=== PATIENT | male | born 1970 | race Caucasian/White ===

== ENCOUNTER 2024-06-30 14:05 | Emergency (ER) | payer OTHER ==
[~2024-06-30] VITALS: Ht 180.3 cm; Wt 117.3 kg
[2024-06-30] MEDS ORDERED: GENVOYA TABLET1 EACH PO (14:20)
[2024-06-30] MEDS ORDERED: MIRTAZAPINE45 MG PO (14:20)
[2024-06-30] MEDS ORDERED: LEVOTHYROXINE50 MC1 PO (14:21)
[2024-06-30] MEDS ORDERED: ACTOS15 MG PO (14:21)
[2024-06-30 14:27] LABS: BASOPHILS 0.8 % (0-2); EOSINOPHILS 1.3 % (0-6); HEMOGLOBIN 14.6 g/dL (12.0-18.0); MCH 32.8 (27-36); MCHC 34.8 g/dl (30-36); MCV 94.2 fl (81-99); MONOCYTES 10.1 % (0-12); NEUTROPHILS 35.8 % (39-80); PLATELET COUNT 209 K/uL (140-440); RBC 4.46 M/ul (4.3-5.7); RDW 12.6 (10.5-15.0)
[2024-06-30] MEDS ORDERED: ondansetron HCL 4 MG/2 ML VIAL IV ONE (14:30)
[2024-06-30 14:45] LABS: ALBUMIN/GLOBULIN RATIO 1.11 (1.1-2.4); ANION GAP 12.8 (7-21); BILIRUBIN, TOTAL 0.5 ng/dL (0.2-1.0); BUN/CREATININE RATIO 7.75 (6.0-28.6); CALCIUM 9.1 mg/dL (8.5-10.1); CREATININE, SERUM 1.29 mg/dL (0.70-1.30); POTASSIUM 3.8 mmol/L (3.5-5.1); PROTEIN, TOTAL 7.6 g/dL (6.4-8.2)
[2024-06-30 14:49] LABS: BILIRUBIN, URINE NEGATIVE (negative); BLOOD/HGB, URINE NEGATIVE (Negative); KETONE, URINE NEGATIVE (Negative); LEUK ESTERASE, URINE NEGATIVE (negative); NITRITE, URINE NEGATIVE (negative); PH, URINE 7.5 (5-7)
[2024-06-30 15:45] VITALS: BP 145/88
== END 2024-06-30 15:45 | disposition other institution, planned readmission (95) ==
LOC: ED 14:05
PROVIDERS: Emergency Medicine
DX: K42.9 Umbilical hernia without obstruction or gangrene (principal); E66.9 Obesity, unspecified; E03.9 Hypothyroidism, unspecified; K76.0 Fatty (change of) liver, not elsewhere classified; K80.20 Calculus of gallbladder without cholecystitis without obstruction; Z88.2 Allergy status to sulfonamides; Z88.8 Allergy status to other drugs, medicaments and biological substances; Z79.899 Other long term (current) drug therapy; Z79.890 Hormone replacement therapy
CPT/HCPCS: 36415; 74176; 80053; 81003; 83690; 85025; 96374; 99284-25; J2405

== ENCOUNTER 2025-06-26 07:59 | Day surgery (SDC) | payer OTHER ==
[~2025-06-26] VITALS: Ht 180.3 cm; Wt 113.6 kg
[~2025-06-26 07:59] MED LIST: ACTOS15 MG PO; CEFAZOLIN SODIUM 2 GM/20 ML SYR IV SCH; GENVOYA TABLET1 EACH PO; HEParin SOD (PORCINE) 5,000 UNIT/ML SDV SUB-Q SCH; IBLOOD GLUCOSE TEST STRIP 1 EA TEST VI PRN; LACTATED RINGER'S 1,000 ML IV SCH; LEVOTHYROXINE50 MC1 PO; LIDOCAINE HCL 1% 5 ML SDV INJ ONE; MIRTAZAPINE45 MG PO; MULTI-VITAMIN1 EACH PO
[2025-06-26] MEDS ORDERED: LEVOTHYROXINE88 MC1 PO (08:26)
[2025-06-26] MEDS ORDERED: VITAMIN D325 MC2 PO (08:27)
[2025-06-26 08:29] VITALS: BP 108/79
[2025-06-26] MEDS ORDERED: fentaNYL citrate 100 MCG/2 ML VIAL ONE (09:07)
[2025-06-26] MEDS ORDERED: ACETAMINOPHEN 1,000 MG/100 ML VIAL ONE (09:07)
[2025-06-26] MEDS ORDERED: KETOROLAC TROMETHAMINE 30 MG/ML VIAL ONE (09:07)
[2025-06-26] MEDS ORDERED: DEXAMETHASONE SOD PHOS 4 MG/ML VIAL ONE (09:07)
[2025-06-26] MEDS ORDERED: LIDOCAINE HCL 2% 5 ML SDV ONE (09:07)
[2025-06-26] MEDS ORDERED: fentaNYL citrate 50 MCG/ML SDV IV PRN (09:45)
[2025-06-26] MEDS ORDERED: NALOXONE HCL 0.4 MG SYR IV PRN ×2 (09:45→10:45)
[2025-06-26] MEDS ORDERED: IBLOOD GLUCOSE TEST STRIP 1 EA TEST VI PRN (09:45)
[2025-06-26] MEDS ORDERED: HYDROmorphone HCL 1 MG/ML SYR IV PRN (09:45)
--- NOTE | 2025-06-26 10:34 | NUR ---
06/26/25 1034 Candida Carey LE 1025: PT ARRIVES TO PACU ASLEEP ON ROOM AIR. REPORT RECEIVED FROM [employer] AND [employer] [address] MAN. LE 1033: PT DROPS DOWN TO 88% ON ROOM AIR. PUT ON 2L VIA NC. HE WAKES UP TO STIMULI AND REPORTS NO PAIN OR NAUSEA.
[2025-06-26] MEDS ORDERED: IBUPROFEN600 MG PO (10:41)
[2025-06-26] MEDS ORDERED: HYDROCODON-ACE1 EA10 PO (10:42)
[2025-06-26] MEDS ORDERED: ACETAMINOPHEN500 MG PO (10:42)
[2025-06-26] MEDS ORDERED: HYDROCODONE/ACETA 5/325 TAB PO PRN (10:45)
[2025-06-26] MEDS ORDERED: ACETAMINOPHEN 500 MG TAB PO PRN (10:45)
[2025-06-26] MEDS ORDERED: LACTATED RINGER'S 1,000 ML IV SCH (10:45)
[2025-06-26] MEDS ORDERED: IBUPROFEN 600 MG TAB PO PRN (10:45)
[2025-06-26 11:01] VITALS: BP 133/75
--- NOTE | 2025-06-26 11:06 | NUR ---
PATIENT BACK IN DAY SURGERY ROOM FROM PACU. DENIES PAIN. VS CHECKED. TOLERATING WATER. GIVEN PUDDING TO EAT. IV SITE WNL. UMBILICAL DRESSING CDI. CALL LIGHT WITHIN REACH. GUARDS AT BEDSIDE.
--- NOTE | 2025-06-26 11:33 | OR ---
[facility] [address], [place] [address] Signed DATE OF OPERATION: 06/26/2025 SURGEON: Jerome Diaz MD PREOPERATIVE DIAGNOSIS: Incarcerated umbilical hernia. POSTOPERATIVE DIAGNOSIS: Incarcerated umbilical hernia with omentum, fascial defect 3.1 cm. PROCEDURES: 1. Repair of incarcerated umbilical hernia, fascial defect 3.1 cm. 2. Implantation of Prolene mesh underlay technique with fascial reapproximation. ANESTHESIA: General LMA, Deepak Shields, LAB RN and local 10 mL of 0.25% Marcaine with epinephrine. INDICATION: This 55-year-old white man is a prisoner at [facility] and has numerous underlying chronic medical issues include history of hepatitis C, history of tuberculosis and HIV disease. He has had an incarcerated increasingly symptomatic umbilical hernia. He is referred by Casi Dao for consideration of repair. The hernia appears to be nonreducible. He is admitted at this time to undergo repair of the hernia. He understands the risk of bleeding, infection, and recurrence. FINDINGS: Indeed herniated properitoneal fat was noted. This was completely reduced. A fascial space in the properitoneal area approximately 3 cm circumferentially was developed and allowed for implantation of Prolene mesh in the properitoneal space. Transverse reapproximation of the fascia was undertaken as well. He tolerated the procedure well. DESCRIPTION OF PROCEDURE: The patient was brought to the operating room, given a general LMA type anesthetic. Preoperative antibiotic Ancef was given and sequential compression device stockings were used. He is almonte, somewhat obese. Abdomen was clipped and prepared with a chlorhexidine solution and draped sterilely. A nonreducible properitoneal fat was noted. A curvilinear incision was made to the left of the umbilicus and dissection was carried through the dermis sharply. Using blunt and electrocautery dissection, the underlying hernia sac and its contents were freed from the overlying dermis of the umbilical skin itself. Circumferential freeing of the herniated contents from the Electronically Signed By: JEROME DIAZ MD 06/26/25 1133 PATIENT NAME: JEROME SCHULTZ OPERATIVE REPORT DATE OF : 70 REPORT #: [id number] PHYSICIAN: JEROME DIAZ MD PCP: [facility] REPORT IS CONFIDENTIAL AND NOT TO BE RELEASED WITHOUT AUTHORIZATION [facility] [address], [place] [address] Signed fascial edge was undertaken and with various manipulations, the herniated properitoneal fat was reduced from the properitoneal space. Using blunt dissection, a space was created between the properitoneal layer and the overlying fascia approximately 3 cm circumferentially. A segment of mesh was cut to a circular configuration and implanted in the properitoneal space and secured with interrupted 0 Prolene sutures. Midline fascia was reapproximated transversely. Prior to closure, the fascial defect was measured at 3.1 cm. A 10 mL of 0.25% Marcaine with epinephrine was injected locally. The layers of the abdominal wall were closed with interrupted 2-0 Vicryl and skin closed with interrupted 3-0 Vicryl in deep dermal layer. Steri-Strips were applied as was an Acticoat dressing. The patient was ultimately extubated and transferred to the recovery room in good condition having suffered no complication. Sponge, needle, and instrument counts were reported as correct x3. MD JOHNATHAN Gomez/MODL /[id number] cc: RM Gonzáles [facility] RIAN Webb Copies: CASI DAO ~ Electronically Signed By: JEROME DIAZ MD 06/26/25 1133 PATIENT NAME: MIGDALIAVANDANAJEROME OPERATIVE REPORT DATE OF : 70 REPORT #: [id number] PHYSICIAN: JEROME DIAZ MD PCP: [facility] REPORT IS CONFIDENTIAL AND NOT TO BE RELEASED WITHOUT AUTHORIZATION
[2025-06-26 11:55] VITALS: BP 128/85
--- NOTE | 2025-06-26 12:22 | NUR ---
1120: SPOT CHECK ON ROOM AIR 96% AFTER TURNING OFF O2. 1135: PATIENT ASSISTED OOB AND TO BATHROOM WITH HELP FROM GUARDS. GAIT STEADY. VOID PER URINAL APPROXIMATELY 300 ML. GAIT STEADY BACK TO ROOM. PATIENT STATES PAIN INCREASED AND WOULD LIKE PAIN MEDICATION. MEDICATED FOR PAIN WITH 1 TAB OF HYDROCODONE/ACETAMINOPHEN. PATIENT REQUESTED IV OUT. IV DC'D WNL. TIP INTACT. DRESSING APPLIED. 1155: UMBILICAL DRESSING WITH TINY SPOT OF RED DRAINAGE. VS CHECKED. 1156: PATIENT DISCHARGED TO HOME VIA WHEELCHAIR WITH GUARDS. REPORT CALLED TO [facility]. ENVELOPE WITH PINK SHEET, DISCHARGE INSTRUCTIONS, AND PRESCRIPTION GIVEN TO GUARDS.
[2025-06-26] MEDS ORDERED: SEVOFLURANE 250 ML BTL INH ONE (14:42)
== END 2025-06-26 11:56 | disposition home or self-care (01) ==
LOC: DS 07:59
PROVIDERS: ATTEND Surgery
PROC: 0WUF0JZ Supplement Abdominal Wall with Synthetic Substitute, Open Approach (ICD-10-PCS; principal; 2025-06-26 09:00)
DX: K42.0 Umbilical hernia with obstruction, without gangrene (principal); E03.9 Hypothyroidism, unspecified; Z21 Asymptomatic human immunodeficiency virus [HIV] infection status; Z22.7 Latent tuberculosis; Z79.890 Hormone replacement therapy; Z79.899 Other long term (current) drug therapy; Z86.19 Personal history of other infectious and parasitic diseases
CPT/HCPCS: 00750; 80053; 85025; C1781; J0131; J0690; J1100; J1644; J1885; J2003; J2405; J2704; J3010; J7121